=== PATIENT | female | born 1935 | race Caucasian/White ===

== ENCOUNTER 2017-01-06 07:58 | Day surgery (SDC) | payer MEDICARE, MEDICAID ==
[2017-01-06] VITALS (14 sets, daily range): BP systolic 103–169; BP diastolic 44–96; PULSE 60–75; RESP 13–18; O2SAT 94–99
[~2017-01-06] VITALS: Ht 149.9 cm; Wt 92.3 kg
[2017-01-06] MEDS: Lactated Ringer's 1,000 ML IV SCH ×5 (05:00→15:00)
--- NOTE | 2017-01-06 07:57 | PCM.HPANE ---
Patient Data Surgeon Admitting Provider: Attending Provider:Hunter Betts MD Primary Care Physician:Francis Healy MD Other Provider:[place] Anesthesia Reason for Visit Urge Incontinence, Stress Incontinence Ht/WT & BMI Height (Feet): 4 Height (Inches): 11.00 Weight (Kilograms): 83.910 Body Mass Index 37.00 Allergies Coded Allergies: cephalexin (Verified Allergy, Intermediate, fatigue, nausea/vomiting, diarrhea, 01/05/17) Latex, Natural Rubber (Verified Allergy, Unknown, 01/05/17) bacitracin (Verified Allergy, Unknown, 01/05/17) neomycin (Verified Allergy, Unknown, 01/05/17) polymyxin B (Verified Allergy, Unknown, 01/05/17) Uncoded Allergies: ADHESIVES (Allergy, Intermediate, swelling, 12/08/16) Past Anesthesia History Anesthesia History: Denies:: Anesthesia Reactions, Malignant Hyperthermia Diabetes History Hx Diabetes?: Yes Type of Diabetes: Type II Glycemic Control: Diet Controlled MRSA MRSA: No Medications Blood Thinner: Aspirin Hypertension Medication: Yes (LASIX,HYDRALAZINE) Home Meds Incl Beta Basilio: Yes (METOPROLOL) Reported Medications Apixaban (Eliquis)5 Mg Tablet5 Mg PO BID 01/05/17 Ranitidine 300 Mg Zqnmla907 Mg PO DAILY Ref 0 12/08/16 Oxybutynin Chloride ER 10 Mg Tab.er.2410 Mg PO DAILY Ref 0 12/08/16 Ondansetron ODT 4 Mg Tab.rapdis4 Mg PO BID 12/08/16 Mirabegron ER (Myrbetriq)50 Mg Nodewv55 Mg PO DAILY 12/08/16 Levothyroxine Sodium (Levo-T)125 Mcg Ogtsow231 Mcg PO DAILY 12/08/16 Hydrocodone-Acetaminophen 5-300 mg 1 Each Tablet1 Tablet PO Q4H PRN For Pain Ref 0 12/08/16 Ferrous Sulfate 325 Mg Zibafn807 Mg PO BID 30 Days Ref 0 12/08/16 Esomeprazole Magnesium (Nexium)40 Mg Capsule.dr40 Mg PO DAILY Ref 0 12/08/16 Ezetimibe 10 Mg Cpiggs64 Mg PO DAILY 12/08/16 Rosuvastatin Calcium 40 Mg Byqajv20 Mg PO DAILY 12/08/16 Furosemide (Lasix)20 Mg Nvdlld05 Mg PO DAILY 30 Days Ref 0 12/08/16 Hydralazine 25 Mg Pinsez85 Mg PO QID Ref 0 12/08/16 Diltiazem ER 180 Mg Capsule.er180 Mg PO DAILY Ref 0 12/08/16 Aspirin 81 Mg Xzvsml92 Mg PO DAILY Ref 0 12/08/16 Metoprolol Succinate ER 100 Mg Tab.er.75f684 Mg PO DAILY Ref 0 12/08/16 Discontinued Reported Medications [aplxaban] No Conflict Check5 Mg BID 12/08/16 History History of ENT Problems?: Yes HEENT History: Positive for:: Cataracts (S/P EXTRACTION) Denture Type: Full- Upper Full- Lower Hx of Heart Problems?: Yes Cardiovascular History: Positive for:: AICD Atrial Fibrillation (PAF ANTICOAGULATION (ELIQUIS)) Cardiac Surgery (TRANSCATHETER AORTIC VALVE REPLACEMENT,CABG,HEART CATH/ ANGIOPLASTY) Chest Pain Congestive Heart Failure ([place] CARDIOMYOPATHY) Coronary Artery Disease Hypertension Irregular Heartbeat Pacemaker (sick sinus syndrom) Valvular Heart Disease (MILD AR,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) Denies:: Heart Murmur (ECHO 04/2016 EF 52% PULM HTN) Other Cardiac History: [place] SYNDROM Hx of Respiratory Problem?: Yes Respiratory History: Positive for:: Dyspnea (RECURRENT NOW S/P ANGIOPLASTY) Denies:: Use of C-PAP Machine (LEFT DURING HER SLEEP STUDY) Other Resp Pertinent History: INSOMNIA Hx Neurologic Problems?: Yes Neurological History: Positive for:: CVA (SUBDURAL HEMORRHAGE) Hx of GI Problems?: Yes Gastrointestinal History: Positive for:: Gastroesphageal Reflux Heartburn Other GI Pertinent History: HX OF C-DIFF Hx of Problems?: Yes Genitourinary History: Positive for:: Urinary Tract Infection Denies:: HX of Hemodialysis (CHRONIC RENAL INSUFFICIENCY) Other Pertinent History: S/P INTERSTIM THERAPY FOR 8 YRS-GENERATOR Female Hx: Denies:: Currently Skin History: Positive for:: History Skin Disorders? (PERINEAL RASH FROM URINARY INCONTINENCE S/P EXC SKIN CA) Denies:: Pressure Ulcers Hx Musculoskeletal Problems?: Yes Hx of Psycho/Social Problems?: No Hx Surgeries?: Yes (PACER,AVR,HEART CATH/ANGIO,EXC SKIN CA,BLADDER SLING X2, BOTOX,CTR,CATARACT,) Hx Any Other Health Problems?: Yes Other History: Positive for:: Cancer (SKIN) Hospitalization Thyroid Disease Denies:: Endocrine Disease History Blood Transfusions: Positive for:: Accept Blood Products? Blood Transfusions (HX OF ANEMIA) Denies:: Blood Transfuse Reaction Hx Diabetes: Yes Hx Alcohol Use: NoHx Substance Use: NoHave You Smoked inLast 12 mo: No Stop/Bang S-Snoring: Do You Snore Loudly: Yes T-Tired: feel tired, fatigued: No O-Obsered: Observed not breath: No P-Blood Pressure: treated: Yes B- Body Mass Index > 35 kg/m2: Yes A- Age over 50: Yes N- Neck Large Circumference: No G- Gender Male: No LAUREN Total Score: 4 LAUREN Risk Assessment: High Risk, =/>3 Yes LAUREN Category 4 OutPt Procedure: Yes Risk Assessment Category Category 1A: Patient has history of documented sleep apnea, and HAS NOT received any narcotic, sedative or anesthesia administration during this stay. Category 1B: Patient has history of documented sleep apnea, and HAS received any narcotic , sedative or anesthesia administration during this stay Category 2: Patient has SUSPECTED Obstructive Sleep Apnea, and HAS received any narcotic , sedative or anesthesia administration during this stay. Category 3: Patient has SUSPECTED Obstructive Sleep Apnea and HAS NOT received narcotic, sedative or anesthesia administration during this stay. Category 4: Outpatient in Procedural Areas with known sleep apnea or who screen positive for High Risk via the STOP/BANG questionnaire. Exam Exam General Appearance: Alert, Oriented X3, Cooperative, No Acute Distress HEENT/AIRWAY: MP 2 Lungs: Normal Air Movement, Other (full dentures) Heart: Exam Unremarkable Meds/Labs/Diagnostics Admission Meds Current Medications Lactated Ringer's (Lr) 1,000 ml @ 120 mls/hr Q8H20M IV Last administered on t 05:52; Start 01/06/17 at 05:00; Stop 01/06/17 at 13:19 Plan Impression Patient chart reviewed, patient interviewed and anesthestic plan with risks, benefits, and alternatives discussed, and informed consent obtained. ASA Physical Status: ASA3 Severe Disease (CAD. paroxysmal a-fib, sever pulm HTN ) Anesthetic Plan: GA, MAC (initially, may convert to GA for macroplastique injection) Bene/Risks/Altern/Consents: Yes HP Complete Prior to Induction: Yes Kyle Morales MD Jan 06, 2017 07:57
[~2017-01-06 07:58] MED LIST: APIX5TAB PO; ASPI-973 PO; DILT180C81 PO; ESOM40CA41 PO; EZET10TA27 PO; FERR-83 PO; FURO-129 PO; HYDR-3090 PO; HYDR-3939 PO; LEVO125T94 PO; Lactated Ringer's 1,000 ML IV SCH; METO-274 PO; MIRA50TA PO; ONDA4TAB12 PO; OXYB10TA PO; RANI300T4 PO; ROSU40TA20 PO
[2017-01-06] MEDS ORDERED: fentaNYL-PF 50 mCg/mL 2 mL Inj ONE (07:59)
[2017-01-06] MEDS ORDERED: Ondansetron 2 mg/mL 2 mL Inj ONE (07:59)
[2017-01-06] MEDS ORDERED: Propofol 10,000 mCg/mL 20 mL Inj ONE (07:59)
[2017-01-06] MEDS: CeFAZolin Inj 2 GM in IV Premix 1 EACH IV ONE ×2 (11:13→11:18)
[2017-01-06] MEDS ORDERED: Lactated Ringer's 500 ML IV PRN (11:34)
[2017-01-06] MEDS ORDERED: Lactated Ringer's 1,000 ML IV SCH (11:34)
[2017-01-06] MEDS ORDERED: Albuterol-Ipratropium 3 mL Inhalation Solution NEB PRN (11:35)
[2017-01-06] MEDS ORDERED: Phenylephrine 10,000 mCg/mL Inj IVPUSH PRN (11:35)
[2017-01-06] MEDS ORDERED: Ondansetron 2 mg/mL 2 mL Inj IVPUSH PRN ×2 (11:35→13:20)
[2017-01-06] MEDS ORDERED: Dexamethasone 4 mg/mL Inj IVPUSH PRN (11:35)
[2017-01-06] MEDS ORDERED: MetoCLOpramide 5 mg/mL 2 mL Inj IVPUSH PRN ×2 (11:35→13:20)
[2017-01-06] MEDS ORDERED: HYDROmorphone 1 mg/mL Inj IVPUSH PRN (11:35)
[2017-01-06] MEDS ORDERED: fentaNYL-PF 50 mCg/mL 2 mL Inj IVPUSH PRN (11:35)
[2017-01-06] MEDS ORDERED: EPHEDrine Sulfate 50 mg/mL Inj IVPUSH PRN (11:35)
[2017-01-06] MEDS ORDERED: Lidocaine 1%-Epi 1:100,000 20 mL Inj NERVEBLOCK ONE (11:42)
[2017-01-06] MEDS ORDERED: Lactated Ringer's 1,000 ML IV ONE (12:25)
[2017-01-06] MEDS ORDERED: Alum-Mag Hydrox-Simeth 30 mL Suspension PO PRN (13:20)
--- NOTE | 2017-01-06 13:28 | PCM.ANEP2 ---
Post Anesthesia Evaluation ASA/CMS Post Anesthesia VS in Patient's Normal Range?: Yes Resp Stable; Airway Patent?: Yes CV Function & Hydration Stable: Yes Mental Status Recovered?: Yes Pain control Satisfactory?: Yes N/V Control Satisfactory?: Yes Kyle Morales MD Jan 06, 2017 13:28
--- NOTE | 2017-01-06 13:28 | PCM.ANEP1 ---
Post Anesthesia Phase 1 PACU Phase 1 Assessment Vital Signs Vital Signs Date Time Temp Pulse Resp B/P Pulse Ox O2 Delivery O2 Flow Rate FiO2 01/06/17 13:05 36.2 60 14 169/56 96 Room Air 01/06/17 09:01 36.0 60 16 103/55 96 Room Air Anesthetic Administered: GA Level of Alertness: Awake, talking WOOD's with Equal Strength: Yes Pain: No Nausea or Vomiting: No Oxygen Delivery: Nasal Cannula Lungs: Normal Air Movement, Other (full dentures) Kyle Morales MD Jan 06, 2017 13:28
[2017-01-06 13:41] LABS: APPEARANCE,URINE CLEAR (CLEAR,HAZY); COLOR,URINE STRAW (YELLOW)
[2017-01-06 13:42] LABS: OCCULT BLOOD,URINE NEGATIVE (NEGATIVE); PH,URINE 5.5 (5.0-8.0); UROBILINOGEN,URINE NORMAL (NORMAL)
--- NOTE | 2017-01-06 14:20 | PCM.SURGOP ---
Surgical Operative Report Date of Service: Jan 06, 2017 Pre Operative Diagnosis Urge Incontinence Recurrent Stress Incontinence Post Operative Diagnosis same Procedure: 1. Interstim Stage 2 (Insertion of peripheral neurostimulator pulse generator and Electronic analysis of implanted neurostimulator pulse generator system) - Removal of old Interstim Implant/ battery and replacement with new implant/ operational battery 2. Macroplastique Urethral Injection and cystoscopy Surgeon and Field Crew Chief: Surgeon: Hunter Betts MD Assistants: None Indication for Procedure Her assessment to date includes: 1. Recalcitrant urge incontinence (failed oxybutynin ER, Myrbetriq, botox injection) 2. Recurrent stress incontinence, 2 previous failed slings, including a TVT sling in 03/2016. She had tried Oxybutynin ER 15 mg daily combined with Myrbetriq 50 mg daily. She had noted only mild improvements. She had a TVT sling by Dr. Merchant at in March 2016 but she states that the stress incontinence is still present. She had a bladder botox injection on Oct 152015 at . She wishes to pursue further options for persistent, recurrent mixed incontinence. She is considering replacing the Interstim battery with a new one or having a completely new Interstim inserted. She is a good candidate for replacement of the old Interstim implant/battery ( only if the old lead is still operational) and Macroplastique urethral injection. However, if the old lead is not operational we would need to remove the old lead and place a new one in and perform a Stage 1 procedure. She has filled out bladder diaries. We have obtained a letter of cardiac clearance from DR. Sarita Torres ( Cardiology Medicine) as she has had previous CABG and aortic valvular surgery. She does not feel that post-op cardiac monitoring is necessary. Medical clearance has been granted by her primary care doctor. Risks of Interstim procedure: Implanting an InterStim System has risks similar to any surgical procedure, including swelling, bruising, bleeding, and infection. Neurostimulation side effects include: Pain at the implant site or new pain Infection or skin irritation Lead (thin wire) movement/migration Device problems Interactions with certain other devices or diagnostic equipment Undesirable changes in urinary or bowel function Uncomfortable stimulation (sometimes described as a jolting or shocking feeling) Very rare risk of organ (bowel, nerve) injury. Risks of Macroplastique: Pain related to the procedure (which can be controlled with pain medication), blood in urine, having to use the bathroom more often or more urgently, delayed voiding, need for catheterization, painful urination, and/or urinary tract infection. An additional risk is no benefit from Macroplastique treatment. Medical risks including myocardial infarction, stroke or VTE. I have asked her to stop Elaquis 48 hr prior to surgery. In discussion with the deputy harbormaster, aspirin should be continued without stopping it due to the high risk of stroke. She will stay overnight as observation and restart Elaquis on POD#1. Findings: see above Procedure Details 1. Interstim Stage 2 (Insertion of peripheral neurostimulator pulse generator and Electronic analysis of implanted neurostimulator pulse generator system) Removal of old Interstim Implant/ battery and replacement with new implant/ operational battery 2. Macroplastique Urethral Injection and cystoscopy Description of Procedure: Patient was properly identified and placed in prone position per OR protocol. Conscious sedation (MAC) was administered. Patient was prepped and draped in the usual sterile fashion. Local injection of 1% lidocaine with 1/320624 epinephrine was administered. 1. Interstim Stage 2 The previous right-sided buttock pocket incision was opened using sharp blunt dissection and the old neurostimulator was identified and brought out of the subcutaneous pocket. By loosening the screw, the lead was freed from the old neurostimulator. The subcutaneous pocket and the lead was irrigated. To confirm that the old lead was still operational, we slowly dialed up the amplitude on the stimulator. We then observed promoting sensory responses. The desired S3 motor response of the pelvic floor was about a Sindy, which was a cooling inward or a deepening of the intergluteal fold. The desired foot response for S3 was a plantar flexion of the great toe. The S3 sensory response was vaginal sensation extending to the perineum and rectum, which was described by the patient. As adequate responses were noted, there was no need to remove the old lead and replace it with a new one. The lead was inserted into the header of the new Neurostimulator until the tip was visualized at the distal window. The single set screw was tightened. The neurostimulator was placed into the subcutaneous pocket with the etched identification side placed upwards and the excessive lead wrapped counterclockwise around the neurostimulator. The programming head was placed over the implanted neurostimulator in a sterile cover to ensure adequate lead connection and that parameters were within normal limits. Impedances were confirmed to be within normal limits, greater than 50 and less than 4,000. The wound was irrigated with antibiotic solution in water and closed with 2-0 vicryl subcutaneous and 4-0 vicryl Monocryl skin sutures. Counts were correct. Dermabond, and gauze 4x4s were placed over incision. 2. Macroplastique urethral injection and cystoscopy. The patient was then placed in the supine position with legs in Yellow Fin stirrups. She was given a general anesthetic. She was prepped and re-draped in the usual fashion for vaginal surgery. A 30-degree cystoscope was inserted into the bladder. The bladder was filled to approximately 50% capacity with sterile water. The scope was retracted to visualize the bladder neck and location of the mid urethral position. The needle was then advanced through the working channel of the scope to visualize the needle tip. The needle was inserted into urethral wall, taking care to ensure that the needle bevel was facing the center of the urethral lumen. We used the tissue tunneling technique by orienting the needle with the bevel towards the urethral lumen at a 30- to 45-degree angle. The needle was advanced into the tissue to the first shilpa, which was 0.5 cm deep. The scope was reduced to 0 degrees. The needle was then advanced to a second shilpa, which was 1 cm deep. Then, 2.5 mL of the Macroplastique were then injected at the 6 o'clock position. Thirty seconds of waiting time elapsed before withdrawing the needle from the tissue to limit product extravasation. The same procedure was performed at the 2 and 10 o'clock positions. The volumes at the 2 and 10 o'clock positions were 1.25 mL of Macroplastique implant. To improve coaptation, further 1.5 ml was injected into the 7 and 5 oclock positions. The end result of the procedure revealed coaptation of the urethral mucosa at the level of the bladder neck. The patient was brought to the recovery room. All sponges and instruments were accounted for. Estimated blood loss was minimal. The patient was transferred to the recovery area in satisfactory condition. Using the clinician gis programmer, the generator was programmed for rate (pulse frequency), pulse amplitude, pulse duration, cycling, stimulation train duration, train spacing, number of programs , and alternating electrode polarities. The total time spent performing programming was 10 minutes. The patient was given instructions on utilizing the patient gis programmer . Complications There were no periprocedural complications identified. Surgical Specimen Removed: No Specimen sent to Pathology: No Anesthetic Plan: GA, MAC (initially, may convert to GA for macroplastique injection) Grafts, Implants: Implants-See Implant Record Output, Estimated Blood Loss: 10 (ml) Blood Administration during haddad: No Drains: None Catheters: Urethral 2 Way Resendiz (12 Syriac) Post Operative Plan due to her hx of cardiac disease, she will be observed overnight as an outpatient; she requires a voiding trial at 8am in the morning copies to: Arthur Angel; Hunter Betts MD, William Andre Z MD Jan 06, 2017 14:20
--- NOTE | 2017-01-06 16:15 | NUR ---
received to room 1008 from PACU alert, oriented, comfortable, VSS, denies nausea, asking to eat, has Resendiz with clear yellow urine. Bruising noted on each side of nose bridge(near eyes) more predominant on left.
[2017-01-06] MEDS ORDERED: Diltiazem CD 180 mg ER24 Capsule PO ONE (22:50)
[2017-01-06] MEDS ORDERED: Pantoprazole 40 mg ER24 Tablet PO ONE (22:50)
[2017-01-07] MEDS: Lactated Ringer's 1,000 ML IV SCH ×2 (00:26→09:17)
--- NOTE | 2017-01-07 03:35 | NUR ---
Nausea/ Ambulation Pt. was experiencing nausea earlier in shift. 5mg Reglan IV given, and seemed to be effective. Pt. did well when dangling feet on side of bed this evening. Pt. just now wanted to get out of bed to move to chair, and tolerated activity very well. Pt. aware of the need to ambulate this AM before padilla taken out at 8 am today per Roxane WILSON orders.
[2017-01-07 06:06] VITALS: BP 140/52; PULSE 60; RESP 16; O2SAT 98
[2017-01-07] MEDS: HYDROcodone-APAP 5-325 mg Tablet PO PRN ×2 (07:54→12:48)
[2017-01-07] MEDS ORDERED: Senna-Docusate 8.6-50 mg Tablet PO SCH (08:30)
[2017-01-07] MEDS ORDERED: Heparin 5,000 Unit/mL Inj SUBQ SCH (08:30)
[2017-01-07] MEDS ORDERED: Non-Formulary Medication (Ranitidine 300 MG) PO SCH (08:30)
[2017-01-07] MEDS ORDERED: MeTOProlol XL 50 mg ER24 Tablet PO SCH (08:30)
[2017-01-07 09:39] VITALS: PULSE 62; RESP 16; O2SAT 92
--- NOTE | 2017-01-07 10:34 | PCM.PNSURG ---
Subjective Date of Service: Jan 07, 2017 Date of Service: Jan 07, 2017 Visit Information: Reason for Visit Urge Incontinence, Stress Incontinence Surgery/Surgery Date INTERSTIM IMPLANT 01/06/17 Post-Op Day # 1 Subjective: AVSS No cardiac sx vicodin controls pain to a score of 6/10 currently just had 300 ml instilled into bladder for voiding trial ambulatory eating - tolerates po OR explained Pt has decided not to leave for vacation today Postop General: No Chest Pain Gastrointestinal: Tolerating Oral Feedings Pain Management: PO Postop Activity: Ambulating Independently Objective Vital Sign- Last 8 Hours Date Time Temp Pulse Resp B/P Pulse Ox O2 Delivery O2 Flow Rate FiO2 01/07/17 09:39 62 16 92 Room Air 01/07/17 06:06 36.8 60 16 140/52 98 Nasal Cannula 2.00 Intake and Output- Last 8 Hour 01/07/17 Cumulative From/Thru 07:00 12/08/16 12:06 - 01/07/17 06:07 Intake Total 1904 ml 3579 ml Output Total 360 ml 970 ml Balance 1544 ml 2609 ml Intake Oral 435 ml 835 ml IV Total 1469 ml 2744 ml Output Urine Total 360 ml 960 ml Estimated Blood Loss 10 ml General: Alert, Oriented X3, Cooperative Lungs: Clear to Auscultation Abdomen: Benign Catheters: None (removed 12F for voiding trial - results pending) Lab & Micro Results: Laboratory Tests Test 01/06/17 13:18 Urine Color Straw Urine Appearance Clear Urine pH 5.5 Urine Specific [place] 1.025 Urine Protein Tracemg/dL Urine Glucose (UA) Negativemg/dL Urine Ketones Negativemg/dL Urine Occult Blood Negative Urine Nitrite Negative Urine Bilirubin Negative Urine Urobilinogen Normalmg/dL Urine Leukocyte Esterase Negative Urine RBC 0-2/hpf Urine WBC 0-5/hpf Urine Epithelial Cells Occasional/hpf Urine Crystals None seen Urine Bacteria Few/hpf Urine Hyaline Casts None/lpf Urine Granular Casts None seen Urine Waxy Casts None seen Urine Red Blood Cell Casts None seen Urine White Blood Cell Casts None seen Urine Mucus None seen Urine Trichomonas None seen Urine Yeast None Urinalysis Comment None Urine Culture Reflexed Not indicated Assessment & Plan Impression 1. stable for discharge later Problems: Plan complete voiding trial - if failed, do padilla teaching (with 12F) catheter f/u in 1 wk if home with catheter (else in 2 wk) VTE Prophylaxis: Other (Elaquis, aspirin 81) Resuscitation Status: CPR: Attempt Resuscitation copies to: Hunter Betts MD, William Andre Z MD Jan 07, 2017 10:34
--- NOTE | 2017-01-07 10:38 | PCM.DIGYN ---
Surgical Discharge Instruction Dates of Hospitalization Date of Hospital Admission to 01/07/17 - outpatient overnight observation Providers Admitting Physician: Primary Care Physician: Arthur Angel MD Attending Physician: Hunter Betts MD Diagnosis at Time of Discharge Diagnosis at time of discharge urge incontinence, stress incontinence Post-operative diagnosis same Problems: Diet Discharge Diet: No restrictions Activity Discharge Activity-General: No lifting >15 pounds for 2 weeks Dressing and Incisional Care Dressing Care: Keep dressing clean, dry & intact Hygiene: May shower after (48 hr) Additional Instructions Discharge Instructions Bring the unopened 12F catheter to your appointment in [address] Betts's MA (if you failed the voiding trial in hospital). Follow Up Plan Follow-up appointment: Weeks (2; also f/u in 1 wk if home with a padilla catheter ) Call your provider for: Fever, Chills, Shortness of breath, Vomitting, Drainage at incision, Heavy vaginal bleeding, Wound redness, Increasing pain Hunter Betts MD Jan 07, 2017 10:38
--- NOTE | 2017-01-07 12:26 | NUR ---
Discharge Note Pt c/o 04/19 perineal pain, Dixon 5/325 X2 effective for this. Pt able to ambulate out in the hallway using FWW with steady gait. Pt failed voiding trial, padilla cath was reinserted without difficulty. Padilla cath teaching completed, all questions were answered. Reviewed all discharge instructions, medications/Rx and follow up appt. Pt ready to discharge home with all belongings, will be accompanied by .
[2017-01-07] MEDS ORDERED: Pantoprazole 40 mg ER24 Tablet PO SCH (21:00)
[2017-01-07] MEDS ORDERED: Diltiazem CD 180 mg ER24 Capsule PO SCH (21:00)
== END 2017-01-07 13:25 | disposition home or self-care (01) ==
LOC: SAS 07:58 → OSC 14:21 → SAS 01-07 13:25
PROVIDERS: ATTEND Obstetrics & Gynecology
DX: N39.46 Mixed incontinence (principal); I12.9 Hypertensive chronic kidney disease with stage 1 through stage 4 chronic kidney disease, or unspecified chronic kidney disease; N18.9 Chronic kidney disease, unspecified; I25.10 Atherosclerotic heart disease of native coronary artery without angina pectoris; E11.22 Type 2 diabetes mellitus with diabetic chronic kidney disease; D64.9 Anemia, unspecified; I50.9 Heart failure, unspecified; F41.9 Anxiety disorder, unspecified; J45.909 Unspecified asthma, uncomplicated; K21.9 Gastro-esophageal reflux disease without esophagitis; E03.9 Hypothyroidism, unspecified; Z95.1 Presence of aortocoronary bypass graft; Z90.710 Acquired absence of both cervix and uterus; Z85.828 Personal history of other malignant neoplasm of skin; Z86.73 Personal history of transient ischemic attack (TIA), and cerebral infarction without residual deficits; Z79.890 Hormone replacement therapy; Z79.82 Long term (current) use of aspirin; Z79.01 Long term (current) use of anticoagulants; Z95.0 Presence of cardiac pacemaker
CPT/HCPCS: 36415; 51715; 64595; 81000; 86850; 94640; 94799; C1767; J0690; J1170; J2175; J2250; J2405; J2765; J3010; J7120; L8606